=== PATIENT | male | born 1980 | race Caucasian/White ===

== ENCOUNTER 2022-05-13 15:35 | Emergency (ER) | payer OTHER, SELFPAY ==
[2022-05-13 15:45] VITALS: BP 145/79; PULSE 70; RESP 18; TEMP 37.2; O2SAT 97
--- NOTE | 2022-05-13 16:30 | DI.RAD_ITS ---
Exam(s) XR CHEST 2V PA LATERAL EXAM: XR CHEST 2V PA LATERAL CLINICAL HISTORY: Cough TECHNIQUE: 2D digital imaging was performed of the chest. Two images were obtained. PA and lateral views were obtained. COMPARISON: No exams were available for comparison FINDINGS: MEDIASTINUM: Normal. HEART: Normal. PULMONARY VASCULATURE: Normal. LUNGS: Clear. PLEURAL SPACE: No pleural effusion or pneumothorax. BONE:Within normal limits for the patient's age. OTHER FINDINGS:Normal. IMPRESSION: No acute pulmonary findings. DATA REPOSITORY: RADIATION DOSE DELIVERED:
--- NOTE | 2022-05-13 16:30 | ED.GENADUL_ITS ---
Discharge Plan Disposition Patient Disposition: Home Discharge Details Clinical Impression: Pneumonia Primary Care Provider: Unknown,Unknown ED Provider: Irena Lauren Home Meds and New Rx's Prescriptions: New azithromycin [Zithromax Z-Gregory] 250 mg tablet See Rx Instructions PO .COMPLEX Qty: 6 0RF Rx Instructions: For 250 mg dose pack: take 500 mg today (day 1), then 250 mg for 4 days (days 2-5) benzonatate 100 mg capsule 100 mg PO TID PRN (Reason: cough) Qty: 14 0RF Rx Instructions: Take 1 capsule by mouth no more than 3 times daily as needed for cough No Action cyclobenzaprine 10 mg Tablet 10 mg PO DAILY prazosin 5 mg Capsule 5 mg PO DAILY omeprazole 20 mg Capsule,Delayed Release(Dr/Ec) 20 mg PO TID fluoxetine 20 mg Capsule 40 mg PO DAILY Discharge Instructions Instructions: Pneumonia (ED) Additional Instructions: The x-ray shows possible pneumonia in your right lower lung. Please take the antibiotic as directed. Take 2 on the first day and 1 a day for the next 4 days. Use the albuterol inhaler 1 or 2 puffs every 4-6 hours as needed for shortness of breath or wheezing. Take the Tessalon Perles for cough as directed. Follow up with primary care provider in 3-5 days. Return to ED sooner if any worsening or concerns. Increase oral non sugary fluids. You may also gargle with warm salt water up to 3 times daily as needed for throat irritation. Please take Tylenol or Ibuprofen with food every 4-6 hours as needed for pain and swelling. Discharge Data Discharge Date/Time-TO BE ENTERED AT DEPARTURE: 05/13/22 17:56 Medical Decision Making 41-year-old male presents to the ER with chief complaint of cough and scratchy throat for approximately a week. He denies any fever, chills body aches chest pain or any other associated symptoms. He denies any productive cough. He is a daily smoker. Does have a past medical history of a pancreatic tumor and diabetes, hypertension, PTSD. Reports he was recently taken off his insulin the end of February. He reports multiple negative home rapid COVID's prior to arrival. He has been taking [id number] DayQuil or similar and cough drops. Lungs are clear to auscultation upon arrival, posterior oropharynx slightly erythemic. He does have somewhat of a hoarse voice. Rapid COVID and flu swab ordered, chest x-ray Tessalon Perles p.o. Rapid COVID and flu are negative Questionable pneumonia noted in the right lower lobe of the x-ray. Will prescribe Tessalon Perles, azithromycin, and albuterol inhaler and discussed follow-up with PCP. This text was generated using [employer] dictation system, please disregard any oddities of phrase or misspellings. Imaging Data Radiologic Study: Imaging: X-Ray Radiologist's impression: Imaging protocol: Radiologic exam of the chest. Views: 2 views. COMPARISON: No relevant prior studies available. FINDINGS: Lungs: There is a region of mildly increased density at the right lung base at the level of the right posterior 8th rib which could represent confluence of shadows but cannot exclude mild airspace opacity in this region. Pleural spaces: There is no evidence of pneumothorax. There are no pleural effusions present. Heart/Mediastinum: The cardiomediastinal silhouette is within normal limits. Bones/joints: Unremarkable. IMPRESSION: Possible mild right basilar airspace opacity, as described above, could represent atelectasis versus mild pneumonia. Recommend clinical correlation. Thank you for allowing us to participate in the care of your patient. Dictated and Authenticated by: Richard Cole MD [facility] General Mode of arrival: ambulatory . Date/Time Provider Initiated Documentation: 05/13/22 16:00 . Limitations to Documentation: no limitations . Information obtained by: patient, RN notes reviewed and old records reviewed . HPI Narrative: 41-year-old male presents to the ER with chief complaint of cough and scratchy throat for approximately a week. He denies any fever, chills body aches chest pain or any other associated symptoms. He denies any productive cough. He is a daily smoker. Does have a past medical history of a pancreatic tumor and diabetes, hypertension, PTSD. Reports he was recently taken off his insulin the end of February. He reports multiple negative home rapid COVID's prior to arrival. He has been taking [id number] DayQuil or similar and cough drops. Lungs are clear to auscultation upon arrival, posterior oropharynx slightly erythemic. He does have somewhat of a hoarse voice. Related Data Home Medications Medication Instructions Recorded Confirmed azithromycin 250 mg tablet See Rx Instructions PO .COMPLEX #6 05/13/22 (Zithromax Z-Gregory) tabs benzonatate 100 mg capsule 100 mg PO TID PRN cough #14 caps 05/13/22 cyclobenzaprine 10 mg tablet 10 mg PO DAILY 05/13/22 05/13/22 fluoxetine 20 mg capsule 40 mg PO DAILY 05/13/22 05/13/22 omeprazole 20 mg capsule,delayed 20 mg PO TID 05/13/22 05/13/22 release prazosin 5 mg capsule 5 mg PO DAILY 05/13/22 05/13/22 Previous Rx's Medication Instructions Recorded azithromycin 250 mg tablet See Rx Instructions PO .COMPLEX #6 05/13/22 (Zithromax Z-Gregory) tabs benzonatate 100 mg capsule 100 mg PO TID PRN cough #14 caps 05/13/22 Allergies Allergy/AdvReac Type Severity Reaction Status Date / Time Penicillins Allergy Severe Anaphylaxis Unverified 05/13/22 15:49 General Stated Complaint: RespSymp RAUL: 4 Review of Systems All systems reviewed & are unremarkable except as noted in HPI and below Cardiovascular Cardiovascular: Denies dyspnea and Denies dyspnea on exertion Respiratory Respiratory: Denies change in phlegm color, Reports chest congestion, Reports cough, Denies hemoptysis, Denies excessive phlegm production, Denies dyspnea, Denies dyspnea on exertion and Denies wheezing Gastrointestinal Gastrointestinal: Denies diarrhea, Denies nausea and Denies vomiting Allergic/Immunologic Allergic/Immunologic: Denies wheezing PFSH All Active Problems (Updated 05/13/22 @ 17:41 by Irena Lauren NP) Pneumonia (Acute) Social History Smoking risk assessment performed?: No Exam Narrative Exam Narrative: Constitutional: Alert and oriented x3. Appears stated age. Normal body habitus. Head: Normocephalic, no trauma. Eyes: Pupils PERRL, Red reflex noted, EOM's intact. Eyelids symmetrical without lesions, discharge, or swelling. ENT: Bilateral TM's WNL, External ear normal to inspection, no mastoid TTP, swelling, or erythema, Nasal turbinates WNL, no nasal discharge. Normal dentition, Posterior pharynx slightly erythemic, no exudate, tonsils 2+ bilaterally uvula midline. Chest: RRR, Normal S1, S2, distal pulses intact. Resp: Lungs clear to auscultation bilaterally, no wheezes, rales, or rhonchi. Abdomen: Soft, non-distended, Normoactive bowel sounds all 4 quads. Musculoskeletal: Normal gait, 5/5 strength to all four extremities. Skin: No suspicious rashes or lesions. Capillary refill less than 2 sec. Neurologic: Cranial nerves II-XII intact. Alert and oriented x 3. Motor: No deficits noted. Sensory: Intact bilaterally all 4 extremities. Reflexes: DTR's intact bilaterally.. Hematologic/Lymphatic: No ecchymosis, no lymphadenopathy. Course Vital Signs Vital signs: Vital Signs Temperature 37.2 C 05/13/22 15:45 Pulse 70 05/13/22 15:45 Respiratory Rate 18 05/13/22 15:45 Blood Pressure 145/79 H 05/13/22 15:45 Pulse Oximetry 97 05/13/22 15:45 Temperature 37.2 C 05/13/22 15:45 Temperature Source Oral 05/13/22 15:45 Pulse 70 05/13/22 15:45 Respiratory Rate 18 05/13/22 15:45 Respiratory Effort Normal 05/13/22 16:08 Blood Pressure 145/79 H 05/13/22 15:45 Blood Pressure Position Sitting 05/13/22 15:45 Pulse Oximetry 97 05/13/22 15:45 Oxygen Delivery Method Room Air 05/13/22 15:45 Oxygen Flow Rate 0 05/13/22 15:45 Pain Level 0 05/13/22 15:45
[2022-05-13] MEDS: Benzonatate 100 MG CAP PO (17:11)
--- NOTE | 2022-05-13 17:22 | DI.VRAD_ITS ---
PROCEDURE INFORMATION: Exam: XR Chest Exam date and time: 05/13/2022 5:07 PM Age: 41 years old Clinical indication: Cough TECHNIQUE: Imaging protocol: Radiologic exam of the chest. Views: 2 views. COMPARISON: No relevant prior studies available. FINDINGS: Lungs: There is a region of mildly increased density at the right lung base at the level of the right posterior 8th rib which could represent confluence of shadows but cannot exclude mild airspace opacity in this region. Pleural spaces: There is no evidence of pneumothorax. There are no pleural effusions present. Heart/Mediastinum: The cardiomediastinal silhouette is within normal limits. Bones/joints: Unremarkable. IMPRESSION: Possible mild right basilar airspace opacity, as described above, could represent atelectasis versus mild pneumonia. Recommend clinical correlation. Dictated and Authenticated by: Richard Cole MD. Ordering:RAMÓN Osborn MD
[2022-05-13] MEDS: Albuterol HFA 8 GM 60 PUFF INH IH (17:47)
[2022-05-13] MEDS: Azithromycin 250 MG TAB 500 MG PO (17:48)
== END 2022-05-13 17:56 | disposition home or self-care (01) ==
PROVIDERS: Emergency Provider Registered Nurse Emergency
DX: J18.9 Pneumonia, unspecified organism (principal); I10 Essential (primary) hypertension; E11.9 Type 2 diabetes mellitus without complications
CPT/HCPCS: 94640; 99283; 71046; 99284

== ENCOUNTER 2022-09-13 14:12 | Emergency (ER) | payer OTHER, SELFPAY ==
--- NOTE | 2022-09-13 14:33 | ED.GENADUL_ITS ---
Discharge Plan Disposition Patient Disposition: Home Condition: Stable Discharge Details Clinical Impression: Puncture wound of foot, right Primary Care Provider: [facility],[place] ED Provider: Irena Lauren Home Meds and New Rx's Prescriptions: No Action cyclobenzaprine 10 mg Tablet 10 mg PO DAILY prazosin 5 mg Capsule 5 mg PO DAILY omeprazole 20 mg Capsule,Delayed Release(Dr/Ec) 20 mg PO TID fluoxetine 20 mg Capsule 40 mg PO DAILY azithromycin [Zithromax Z-Gregory] 250 mg tablet See Rx Instructions PO .COMPLEX Qty: 6 0RF Rx Instructions: For 250 mg dose pack: take 500 mg today (day 1), then 250 mg for 4 days (days 2-5) benzonatate 100 mg capsule 100 mg PO TID PRN (Reason: cough) Qty: 14 0RF Rx Instructions: Take 1 capsule by mouth no more than 3 times daily as needed for cough gabapentin 300 mg capsule 300 mg Patient Comments: take 1 capsule by mouth AT NIGHT Discharge Instructions Instructions: Puncture Wound (ED) Additional Instructions: Keep clean and dry, keep covered when at work. Allow to air dry at least 2 hours a day. Return for any signs of infection including increased redness, swelling drainage or red streaks. You were given a tetanus booster here today. Please take Tylenol or Ibuprofen with food every 4-6 hours as needed for pain and swelling. Follow up with primary care provider in 3-5 days if needed. Return to ED sooner if any worsening or concerns. Increase oral fluids. Referrals: [facility],[place] [Primary Care Provider] - Return if symptoms worsen Medical Decision Making 42 year old male presents with a puncture wound to his right foot. Patient was at work at 0800 am and stepped on a nail. he then continued to work. He is requesting tetanus vaccination. I did discuss home care with him and strict return instructions to return if any signs of infection he verbalized understanding. Tdap ordered and wound care. This text was generated using [employer] system, please disregard any oddities of phrase or misspellings. HPI General Mode of arrival: ambulatory . Date/Time Provider Initiated Documentation: 09/13/22 14:18 . Limitations to Documentation: no limitations . Information obtained by: patient, RN notes reviewed and old records reviewed . HPI Narrative: 42 year old male presents with a puncture wound to his right foot. Patient was at work at 0800 am and stepped on a nail. he then continued to work. He is requesting tetanus vaccination. I did discuss home care with him and strict return instructions to return if any signs of infection he verbalized understanding. Related Data Home Medications Medication Instructions Recorded Confirmed azithromycin 250 mg tablet See Rx Instructions PO .COMPLEX #6 05/13/22 (Zithromax Z-Gregory) tabs benzonatate 100 mg capsule 100 mg PO TID PRN cough #14 caps 05/13/22 cyclobenzaprine 10 mg tablet 10 mg PO DAILY 05/13/22 05/13/22 fluoxetine 20 mg capsule 40 mg PO DAILY 05/13/22 05/13/22 omeprazole 20 mg capsule,delayed 20 mg PO TID 05/13/22 05/13/22 release prazosin 5 mg capsule 5 mg PO DAILY 05/13/22 05/13/22 gabapentin 300 mg capsule 300 mg 09/13/22 Previous Rx's Medication Instructions Recorded azithromycin 250 mg tablet See Rx Instructions PO .COMPLEX #6 05/13/22 (Zithromax Z-Gregory) tabs benzonatate 100 mg capsule 100 mg PO TID PRN cough #14 caps 05/13/22 Allergies Allergy/AdvReac Type Severity Reaction Status Date / Time Penicillins Allergy Severe Anaphylaxis Unverified 05/13/22 15:49 General Stated Complaint: Laceration RAUL: 4 Review of Systems Integumentary/Breasts Skin/Breast: Reports wounds (Puncture wound right foot) [facility] All Active Problems (Updated 09/13/22 @ 14:38 by Irena Lauren NP) Puncture wound of foot, right (Acute) Social History Smoking/Tobacco Use Status: Never Smoking risk assessment performed?: Yes Alcohol Intake: former Drug use: Socially Substance use type: marijuana Do you feel safe at home: Yes Do you feel safe in your relationship?: Yes Exam Extrem Right lower extremity: foot Details: normal capillary refill, normal to inspection and puncture wound plantar medial mid Details: single Ankle/foot/toe images: 1. Puncture wound noted, no bleeding at this time. Course Vital Signs Vital signs: Respiratory Effort Normal, Non-Labored 09/13/22 14:19 Pain Level 0 09/13/22 14:27
== END 2022-09-13 15:05 | disposition home or self-care (01) ==
PROVIDERS: Emergency Provider Registered Nurse Emergency
DX: S91.331A Puncture wound without foreign body, right foot, initial encounter (principal); W45.0XXA Nail entering through skin, initial encounter
CPT/HCPCS: 90471; 99284; 99283

== ENCOUNTER 2023-04-25 17:24 | Emergency (ER) | payer OTHER, SELFPAY ==
[2023-04-25 17:29] VITALS: BP 164/116; PULSE 79; RESP 22; TEMP 37.5; O2SAT 97
--- NOTE | 2023-04-25 17:36 | ED.GENADUL_ITS ---
HPI General Date/Time Provider Initiated Documentation: 04/25/23 17:35 . HPI Narrative: 42 year-old male presents to ED today by POV/ambulating with a chief complaint of cough, lung irritation with onset one week ago. Quality described as burning cough- feels he may have aspiration pneumonia which he has had before due to significant reflux disease, no radiation to fever, shortness of breath, body aches, profound lethargy, endorses mild sore throat. Severity is described as moderate. Palliating factors include nothing specific. Provoking factors include nothing specific. Patient not anticoagulated. Related Data Home Medications Medication Instructions Recorded Confirmed cyclobenzaprine 10 mg tablet 20 mg PO BID 05/13/22 04/25/23 fluoxetine 20 mg capsule 40 mg PO DAILY 05/13/22 04/25/23 omeprazole 20 mg capsule,delayed 20 mg PO TID 05/13/22 04/25/23 release gabapentin 300 mg capsule 300 mg PO BID 09/13/22 04/25/23 pantoprazole 40 mg tablet,delayed 40 mg PO DAILY 04/25/23 04/25/23 release (Protonix) Allergies Allergy/AdvReac Type Severity Reaction Status Date / Time Penicillins Allergy Severe Anaphylaxis Unverified 04/25/23 17:35 General Stated Complaint: RespSymp RAUL: 3 Review of Systems All systems reviewed & are unremarkable except as noted in HPI and below Exam Narrative Exam Narrative: GENERAL APPEARANCE: Well-nourished, non-toxic, awake and alert, atraumatic, no acute distress. SKIN: Warm, pink, dry, intact, without rashes/lesions/ulcerations. HEAD: Normocephalic, atraumatic, normal hair distribution for gender/age. EYES: Pupils PERRLA, EOMs intact without nystagmus, normal conjunctiva, no exudates on lids/lashes. ENT: Nares patent, no circumoral cyanosis, no facial swelling NECK: Supple, trachea midline, painless cervical ROM. LUNGS/CHEST: Lungs CTA bilaterally - no rhonchi/rales/wheezes diffusely, non- labored respirations, normal A/P diameter, symmetrical expansion, no chest wall deformity HEART (CV/PV): Regular rate and rhythm without murmur, no peripheral edema, no JVD. ABDOMEN: Soft, non-distended, no guarding, no tenderness. MSK: Normal ROM, no swelling/deformity to bilateral UEs or LEs, moving all extremities without weakness, no cyanosis, spine midline without tenderness, normal curvature. NEURO: Mental Status AAOx4 - alert to person, place, time, events No facial droop, no forehead involvement. Motor: No focal weakness - strength 5/5 in bilateral UEs and LEs, proximal and distal, symmetric. Sensory: sensation intact to light touch globally. Gait normal: patient ambulated without ataxia into ED room. PSYCH: euthymic, cooperative, pleasant, appropriate speech Course Vital Signs Vital signs: Vital Signs Temperature 37.5 C 04/25/23 17:29 Pulse 79 04/25/23 17:29 Respiratory Rate 22 04/25/23 17:29 Blood Pressure 164/116 H 04/25/23 17:29 Pulse Oximetry 97 04/25/23 17:29 Temperature 37.5 C 04/25/23 17:29 Temperature Source Temporal Artery Scan 04/25/23 17:29 Pulse 79 04/25/23 17:29 Respiratory Rate 22 04/25/23 17:29 Blood Pressure 164/116 H 04/25/23 17:29 Blood Pressure Position Sitting 04/25/23 17:29 Pulse Oximetry 97 04/25/23 17:29 Oxygen Delivery Method Room Air 04/25/23 17:29 Oxygen Flow Rate 0 04/25/23 17:29 Pain Level 6 04/25/23 17:29 Medical Decision Making This dictation utilizes [id number] dictation software and may contain unedited grammatical errors. 42 y/o M presents to ED today with a chief complaint of cough for one week, b urning in nature, feels he has aspiration pneumonia. Patient denies fever, shortness of breath, profound lethargy, body aches. Patients' medical history: GERD. Family and social history: noncontributory. Pertinent exam findings / vital signs include lungs CTA, no respiratory distress, nontoxic vitals. Differential / pathologies of concern include viral syndrome, aspiration pneumonia, URI. Diagnostic studies of: -Covid/Flu/RSV PCR, XR Chest. -CXR clear -Covid/Flu/RSV shows influenza positive Interventions of: -none- out of window for TamiFlu. ED Course/Assessment/Plan: 42-year-old male presents with cough for 1 week and denies significant shortness of breath, denies profound lethargy or bodyaches or intractable nausea vomiting, his chest x-ray is clear and his PCR swab shows positive for influenza, he is outside window for Tamiflu, I recommend he take therapeutic dosing Tylenol and ibuprofen and did provide an albuterol inhaler for subjective shortness of breath to go. Counseled on return criteria for worsening respiratory distress or inability to tolerate p.o. intake or profound lethargy. Findings not consistent with hypoxic respiratory failure, pneumonia. Disposition of influenza A. Patient verbalized understanding of the plan and return to ED criteria and engaged in shared decision making. Medical Records Medical records reviewed: Yes I reviewed the patient's medical records. Imaging Data Radiologic Study: Attestation: I personally reviewed and interpreted this imaging study as follows: Imaging: X-Ray Radiologist's impression: Exam(s) XR CHEST 2V PA LATERAL EXAM: XR CHEST 2V PA LATERAL CLINICAL HISTORY: cough 1 week. TECHNIQUE: 2D digital imaging was performed. COMPARISON: CR,XR XR CHEST 2V PA LATERAL from 05/13/2022 FINDINGS: 2 views: Heart size is normal. The mediastinum is not widened. Lungs are clear. No infiltrates nor pleural effusions. IMPRESSION: No acute pulmonary findings. Lab Data Lab results reviewed: Yes I reviewed the patient's lab results. 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 VIDYA,RN 04/25/23 Housing: house Do you feel safe at home: Yes Do you feel safe in your relationship?: Yes Discharge Plan Disposition Patient Disposition: Home Condition: Stable Discharge Details Clinical Impression: Influenza A Primary Care Provider: Unknown,Unknown ED Provider: Erasto Camacho Home Meds and New Rx's Prescriptions: Continued cyclobenzaprine 10 mg Tablet 20 mg PO BID omeprazole 20 mg Capsule,Delayed Release(Dr/Ec) 20 mg PO TID fluoxetine 20 mg Capsule 40 mg PO DAILY gabapentin 300 mg capsule 300 mg PO BID Patient Comments: take 1 capsule by mouth AT NIGHT pantoprazole [Protonix] 40 mg tablet,delayed release (DR/EC) 40 mg PO DAILY Discharge Instructions Instructions: Influenza (ED) Additional Instructions: You were seen in the emergency department for your cough with irritation in your lungs, you deny profound shortness of breath or profound lethargy, you are tolerating p.o. intake well. Your PCR swab is positive for influenza, your chest x-ray shows no pneumonia. You are outside window for the antiviral medicine Tamiflu which shortens duration of the flu. I am providing you with an albuterol inhaler for any developing subjective shortness of breath. Please use therapeutic dosing of Tylenol (acetamenophen) & Advil (ibuprofen) in an alternating fashion as follows: Take 1000mg of Tylenol every 6 hours without missing doses- that is 4 times per day. [place] in between the Tylenol dosings, take 400-600mg of Advil also on a 6 hour schedule, that is also 4 times per day. The daily maximum dosing of Tylenol is 4000mg, and the daily maximum dosing of Advil is 2400mg. This is safe to do for weeks. Please note that some common cold medications & prescription pain medications may contain acetamenophen and you need to read OTC drug labels and factor that in to maximum daily dosings. Get plenty of rest and stay well-hydrated, return to the ED for any profound lethargy, intractable nausea or vomiting or profound shortness of breath.
--- NOTE | 2023-04-25 17:45 | DI.RAD_ITS ---
Exam(s) XR CHEST 2V PA LATERAL EXAM: XR CHEST 2V PA LATERAL CLINICAL HISTORY: cough 1 week. TECHNIQUE: 2D digital imaging was performed. COMPARISON: CR,XR XR CHEST 2V PA LATERAL from 05/13/2022 FINDINGS: 2 views: Heart size is normal. The mediastinum is not widened. Lungs are clear. No infiltrates nor pleural effusions. IMPRESSION: No acute pulmonary findings. DATA REPOSITORY: RADIATION DOSE DELIVERED:
[2023-04-25 17:50] VITALS: BP 164/116; PULSE 79; RESP 22; TEMP 37.5; O2SAT 97
[2023-04-25 19:02] LABS: COVID-19 PCR Negative (Negative); Influenza A PCR Positive (Negative); Influenza B PCR Negative (Negative); RSV PCR Negative (Negative)
[2023-04-25 19:03] LABS: Source NASOPHARYNX
[2023-04-25] MEDS: Albuterol HFA 8 GM 60 PUFF INH IH (19:15)
[2023-04-25 19:17] VITALS: BP 132/62; PULSE 84; RESP 16; TEMP 36.6; O2SAT 99
== END 2023-04-25 19:19 | disposition home or self-care (01) ==
PROVIDERS: Emergency Provider Physician Assistant
DX: J10.1 Influenza due to other identified influenza virus with other respiratory manifestations (principal); Z11.52 Encounter for screening for COVID-19
CPT/HCPCS: 87637; 99283; 71046

== ENCOUNTER 2023-06-13 14:24 | Outpatient (CLI) | payer OTHER, SELFPAY ==
[2023-06-12 17:08] LABS: Abs Immature Grans 0.02 10^3/uL (0.0-0.06); Absolute Basophil Count 0.04 10^3/uL (0.0-0.2); Absolute Eosinophil Count 0.48 10^3/uL (0.0-0.7); Absolute Monocyte Count 0.51 10^3/uL (0.1-0.8); Absolute Neutrophil Count 6.35 10^3/uL (1.2-6.7); Basophils % 0.4; Eosinophils % 4.7; HGB 15.1 g/dL (13.5-17.5); Immature Grans % 0.2; Lymphocytes % 28.2; MCH 28.4 pg (27.0-33.0); MCHC 33.6 % (32.0-36.0); MCV 85 fL (80-95); MPV 10.8 fL (8.0-11.0); Neutrophils % 61.5; Platelet Count 212 10^3/uL (130-400); RBC 5.32 10^6/uL (4.36-5.78); RDW 12.7 % (11.8-14.1); RDW-SD 39.3 fL
[2023-06-12 17:25] LABS: PTT Activated 26.7 sec (23.6-32.8); Prothrombin Time 10.5 sec (9.1-11.1)
[2023-06-12 18:19] LABS: ALT 40 U/L (16-63); AST 31 U/L (15-37); Alkaline Phosphatase 103 U/L (46-116); Anion Gap 10.5 mmol/L (3-11); BUN 15 mg/dL (7-18); Bilirubin, Total 0.4 mg/dL (0.2-1.0); CO2 29.5 mmol/L (21.0-32.0); CREATININE 0.9 mg/dL (0.70-1.30); Calcium 9.3 mg/dL (8.5-10.1); Chloride 102 mmol/L (98-107); Estimated GFR 108.68 (mL/min/1.73m2); Glucose 94 mg/dL (74-106); Potassium 3.5 mmol/L (3.5-5.1); Sodium 142 mmol/L (136-145); Total Protein 7.8 g/dL (6.4-8.2)
[2023-06-13 19:29] LABS: Hepatitis C Ab w Rflx HCV PCR Reactive (Negative)
[2023-06-14 12:31] LABS: HCV RNA Qualitative Undetected (Undetected)
== END 2023-06-13 14:25 | disposition home or self-care (01) ==
PROVIDERS: Visit Provider Neurological Surgery
DX: M47.12 Other spondylosis with myelopathy, cervical region (principal); Z01.818 Encounter for other preprocedural examination; Z86.19 Personal history of other infectious and parasitic diseases
CPT/HCPCS: 36415; 80053; 86803; 87522; 85025; 85610; 85730

== ENCOUNTER 2024-02-07 14:27 | Emergency (ER) | payer OTHER, SELFPAY ==
[2024-02-07 14:29] VITALS: BP 128/90; PULSE 90; RESP 20; TEMP 36.7; O2SAT 96
[2024-02-07 14:32] VITALS: BP 128/90; PULSE 90; RESP 20; TEMP 36.7; O2SAT 96
--- NOTE | 2024-02-07 14:46 | ED.GENADUL_ITS ---
Discharge Plan Disposition Patient Disposition: Home Condition: Stable Discharge Details Clinical Impression: Acute respiratory infection Primary Care Provider: Unknown,Unknown ED Provider: Eddie Cota Home Meds and New Rx's Prescriptions: New prednisone 20 mg tablet 60 mg PO DAILY 4 Days Qty: 12 0RF doxycycline hyclate 100 mg tablet 100 mg PO BID Qty: 14 0RF Continued fluoxetine 20 mg Capsule 40 mg PO DAILY baclofen 5 mg tablet 5 mg PO TID Patient Comments: TAKE 2 TABLETS BY MOUTH THREE TIMES DAILY NEEDED FOR MUSCLE SPASM pantoprazole [Protonix] 40 mg tablet,delayed release (DR/EC) 40 mg PO DAILY Discontinued cyclobenzaprine 10 mg Tablet 20 mg PO BID omeprazole 20 mg Capsule,Delayed Release(Dr/Ec) 20 mg PO TID gabapentin 300 mg capsule 300 mg PO BID Patient Comments: take 1 capsule by mouth AT NIGHT Discharge Instructions Additional Instructions: Your viral swab and chest x-ray did not show any concerning findings. Given you have had a week of symptoms we are initiating oral antibiotics with doxycycline for potential early pneumonia If you are not better within a week follow-up with either express care or your primary care provider If you feel more ill or have severe worsening shortness of breath return to the emergency department for reevaluation HPI General Mode of arrival: ambulatory . Date/Time Provider Initiated Documentation: 02/07/24 14:28 . Limitations to Documentation: no limitations . Information obtained by: patient . History of Present Illness 43 year old M presents to the emergency department with the chief complaint of cough and w heezing, described as moderate, Patient started experiencing this week(s) (1) and it has been constant. No relieving factors improve symptom(s), No exacerbating factors reported . Patient notes denies chest pain and fever/chills. Patient did receive the following treatments prior to arrival, none Related Data Home Medications ?Medication ?Instructions ?Recorded ?Confirmed fluoxetine 20 mg capsule 40 mg PO DAILY 05/13/22 02/07/24 pantoprazole 40 mg tablet,delayed 40 mg PO DAILY 04/25/23 02/07/24 release (Protonix) baclofen 5 mg tablet 5 mg PO TID 02/07/24 02/07/24 doxycycline hyclate 100 mg tablet 100 mg PO BID #14 tabs 02/07/24 prednisone 20 mg tablet 60 mg (3 x 20 mg) PO DAILY 4 days 02/07/24 #12 tabs Previous Rx's ?Medication ?Instructions ?Recorded doxycycline hyclate 100 mg tablet 100 mg PO BID #14 tabs 02/07/24 prednisone 20 mg tablet 60 mg (3 x 20 mg) PO DAILY 4 days 02/07/24 #12 tabs Allergies Allergy/AdvReac Type Severity Reaction Status Date / Time Penicillins Allergy Severe Anaphylaxis Unverified 02/07/24 14:33 General Stated Complaint: RespSymp RAUL: 4 Review of Systems All systems reviewed & are unremarkable except as noted in HPI and below Constitutional Constitutional: Denies chills, Denies fever(s) and Denies weakness ENT Ears, Nose, Mouth, and Throat: Denies change in voice Cardiovascular Cardiovascular: Denies chest pain and Denies dyspnea Respiratory Respiratory: Denies dyspnea and Reports wheezing Gastrointestinal Gastrointestinal: Denies abdominal pain, Denies nausea and Denies vomiting Musculoskeletal Musculoskeletal: Denies joint swelling Neurologic Neurologic: Denies weakness Allergic/Immunologic Allergic/Immunologic: Reports wheezing Exam Const General: no acute distress Orientation: alert HENTN Head: normal to inspection Ears: external ears normal General nose exam: external nose normal Mouth: moist mucous membranes Eyes General: appearance normal, both eyes and all related structures Neck Neck: normal visual inspection Resp Effort & Inspection: normal respiratory effort and able to speak in complete sentences Auscultation: wheezes Cardio Rate: regular rate Skin General skin exam: no rashes or lesions noted Neuro General: patient alert and patient oriented x3 Extrem General: normal to inspection Psych Mental Status: mental status grossly normal Course Vital Signs Vital signs: Vital Signs Temperature 36.7 C 02/07/24 14:29 Pulse 90 02/07/24 14:29 Respiratory Rate 20 02/07/24 14:29 Blood Pressure 128/90 02/07/24 14:29 Pulse Oximetry 96 02/07/24 14:29 Temperature 36.7 C 02/07/24 14:32 Pulse 90 02/07/24 14:32 Respiratory Rate 20 02/07/24 14:32 Respiratory Effort Normal 02/07/24 14:32 Blood Pressure 128/90 02/07/24 14:32 Blood Pressure Position Sitting 02/07/24 14:32 Pulse Oximetry 96 02/07/24 14:32 Oxygen Delivery Method Room Air 02/07/24 14:32 Oxygen Flow Rate 0 02/07/24 14:29 Medical Decision Making 43-year-old male with a history of chronic smoking comes in with 1 week of intermittently productive cough. He also states that he feels wheezy in his chest. He denies any high fevers or known sick contacts. Denies any chest pain or pressure. Denies any IV drug use. He is speaking full sentences on exam with intermittent harsh sounding cough. He has diffuse wheezing in both lungs on auscultation, no murmurs, no JVD, no leg swelling or calf tenderness. His symptoms seem consistent with a respiratory infection likely has a component of reactive airway disease or COPD. Will treat with a DuoNeb and prednisone and also obtain a chest x-ray and Fluvid. He has no fevers and is otherwise well- appearing so doubt sepsis and do not feel any blood work is indicated at this time. Patient's lung exam now only has mild apical wheezing. He remained stable, x- ray and Fluvid negative. Given he had a week of symptoms I feel it is reasonable to treat with antibiotics, will initiate treatment with doxycycline. 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
[2024-02-07] MEDS: predniSONE 20 MG TAB 60 MG PO (15:12)
[2024-02-07] MEDS: Albuterol/Ipratropium 3 ML UPD VIAL UPD (15:12)
[2024-02-07 15:22] LABS: COVID-19 PCR Negative (Negative); Influenza A PCR Negative (Negative); Influenza B PCR Negative (Negative); RSV PCR Negative (Negative)
[2024-02-07 15:23] LABS: Source Nasopharynx
--- NOTE | 2024-02-07 15:41 | DI.RAD_ITS ---
Exam(s) XR CHEST 2V PA LATERAL EXAM: XR CHEST 2V PA LATERAL CLINICAL HISTORY: cough TECHNIQUE: 2D digital imaging was performed. Two views. COMPARISON: CR XR CHEST 2V PA LATERAL from 04/25/2023 FINDINGS: HEART: Normal size. Aorta: Not dilated. PULMONARY VASCULATURE: Normal. MEDIASTINUM: Unremarkable. LUNGS: Clear. PLEURAL SPACE: No pleural effusion or pneumothorax. BONE:Unremarkable for age. SOFT TISSUES: Unremarkable. IMPRESSION: No acute abnormality. DATA REPOSITORY: RADIATION DOSE DELIVERED:
[2024-02-07 16:01] VITALS: BP 155/90; PULSE 72; RESP 14; O2SAT 97
== END 2024-02-07 16:06 | disposition home or self-care (01) ==
LOC: ER 16:02
PROVIDERS: Emergency Provider Emergency Medicine
DX: J06.9 Acute upper respiratory infection, unspecified (principal)
CPT/HCPCS: 87637; 94640; 99284; 71046; J7512; J7620

== ENCOUNTER 2024-06-01 18:42 | Emergency (ER) | payer OTHER, SELFPAY ==
[2024-06-01 18:45] VITALS: BP 164/89; PULSE 59; RESP 18; TEMP 36.6; O2SAT 98
--- NOTE | 2024-06-01 19:19 | ED.GENADUL_ITS ---
Discharge Plan Disposition Patient Disposition: Home Condition: Good Discharge Details Clinical Impression: Cough Primary Care Provider: Unknown,Unknown ED Provider: Sarah Leal Home Meds and New Rx's Prescriptions: New benzonatate 100 mg capsule 100 mg PO BID PRNQty: 6 0RF Continued fluoxetine 20 mg Capsule 40 mg PO DAILY baclofen 5 mg tablet 5 mg PO TID Patient Comments: TAKE 2 TABLETS BY MOUTH THREE TIMES DAILY NEEDED FOR MUSCLE SPASM pantoprazole [Protonix] 40 mg tablet,delayed release (DR/EC) 40 mg PO DAILY Discharge Instructions Instructions: Benzonatate, Cough, Adult ED Additional Instructions: Use your albuterol inhaler at home as prescribed. You can take benzonatate for cough. BE VERY CAREFUL WITH THIS MEDICATION IT IS VERY DANGEROUS FOR CHILDREN AND EVEN ONE PILL CAN LEAD TO . Store it safely where your 6 month old cannot reach it and throw away any that is left over (in a location that your child cannot access) after your cough improves. Call your primary care doctor to schedule an appointment to be seen within the next 72 hours to followup on your visit here. At that visit mention your blood pressure which is high here today. Return to the emergency department for new or worsening symptoms including fever, difficulty breathing, or if you have any other concerns. Discharge Data Discharge Date/Time-TO BE ENTERED AT DEPARTURE: 06/01/24 19:31 HPI General Mode of arrival: ambulatory . Date/Time Provider Initiated Documentation: 06/01/24 18:44 . Limitations to Documentation: no limitations . Information obtained by: patient . HPI Narrative: 43yo M with hx asthma, smoker, presenting for cough. Symptoms started 2 days ago, frequent harsh cough occasionally productive of clear or yellowish sputum. Keeping him up at night. No fevers, shortness of breath, chest pain, dyspnea on exertion, LE edema, or other concerns. Otherwise in his usual state of health. Related Data Home Medications ?Medication ?Instructions ?Recorded ?Confirmed fluoxetine 20 mg capsule 40 mg PO DAILY 05/13/22 06/01/24 pantoprazole 40 mg tablet,delayed 40 mg PO DAILY 04/25/23 06/01/24 release (Protonix) baclofen 5 mg tablet 5 mg PO TID 02/07/24 06/01/24 benzonatate 100 mg capsule 100 mg PO BID PRN #6 caps 06/01/24 Previous Rx's ?Medication ?Instructions ?Recorded benzonatate 100 mg capsule 100 mg PO BID PRN #6 caps 06/01/24 Allergies Allergy/AdvReac Type Severity Reaction Status Date / Time Penicillins Allergy Severe Anaphylaxis Unverified 06/01/24 18:47 bee venom protein (honey bee) Allergy Anaphylaxis Verified 06/01/24 18:47 chocolate Allergy Anaphylaxis Verified 06/01/24 18:47 General Stated Complaint: RespSymp RAUL: 4 Review of Systems Narrative: see HPI Exam Narrative Exam Narrative: General: Alert, well appearing, well nourished, in no acute distress. Head: Normocephalic, atraumatic Neck: Trachea midline, ?Neck supple. ENT: ?MMM.? No oropharygeal lesions or exudate. Cardiac: ?RRR, no murmurs appreciated Resp: No respiratory distress. CTAB. Abd: ?Soft, non-distended, nontender : ?No suprapubic tenderness. No CVA tenderness. Extremities: ?No deformities.? No peripheral edema. Neurologic: GCS 15. ? Moves all extremities freely against gravity Course Vital Signs Vital signs: Vital Signs Temperature 36.6 C 06/01/24 18:45 Pulse 59 L 06/01/24 18:45 Respiratory Rate 18 06/01/24 18:45 Blood Pressure 164/89 H 06/01/24 18:45 Pulse Oximetry 98 06/01/24 18:45 Temperature 36.6 C 06/01/24 18:45 Temperature Source Oral 06/01/24 18:45 Pulse 59 L 06/01/24 18:45 Respiratory Rate 18 06/01/24 18:45 Respiratory Effort Normal, Non-Labored 06/01/24 18:56 Respiratory Depth Normal 06/01/24 18:56 Blood Pressure 164/89 H 06/01/24 18:45 Blood Pressure Position Sitting 06/01/24 18:45 Pulse Oximetry 98 06/01/24 18:45 Oxygen Delivery Method Room Air 06/01/24 18:45 Oxygen Flow Rate 0 06/01/24 18:45 Pain Level 0 06/01/24 18:45 Medical Decision Making 43yo M with hx asthma, smoker, presenting for cough x 2 days. No fever CP, or SOB. Hypertensive on arrival, vital signs otherwise reassuring. Well appearing on exam, no respiratory distress, lungs CTAB. Not concerned for pneumonia at this time; unlikely ACS, PE, CHF, pulmonary edema, sepsis, or other life- threatening pathology. Would not get labs or CT imaging. POC covid/flu negative. Given albuterol inhaler (pt out of his home inhaler). Discussed risks/benefits of tessalon pearls for cough (pt does have 6 month old at home) including one pill can kill status for pediatrics and the importance of storing safely. Short course prescribed. He was advised to followup with his PCP and to discuss his HTN at that visit. Discharged home; discharge instructions and return precautions were reviewed with patient and partner at bedside who verbalized understanding. All questions were answered and he is in full agreement with the plan. 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
[2024-06-01] MEDS: Albuterol HFA 8 GM 60 PUFF INH IH (19:24)
== END 2024-06-01 19:31 | disposition home or self-care (01) ==
PROVIDERS: Emergency Provider Student in an Organized Health Care Education/Training Program
DX: R05.9 Cough, unspecified (principal); J45.909 Unspecified asthma, uncomplicated; F17.200 Nicotine dependence, unspecified, uncomplicated
CPT/HCPCS: 87426; 99283

== ENCOUNTER 2024-06-04 10:39 | Emergency (ER) | payer OTHER, SELFPAY ==
[2024-06-04 11:02] VITALS: BP 127/86; PULSE 89; RESP 16; TEMP 36.7; O2SAT 97
--- NOTE | 2024-06-04 11:15 | DI.RAD_ITS ---
Exam(s) XR CHEST 2V PA LATERAL EXAM: XR CHEST 2V PA LATERAL CLINICAL HISTORY: Cough TECHNIQUE: 2D digital imaging was performed. Two views. COMPARISON: CR XR CHEST 2V PA LATERAL from 02/07/2024 FINDINGS: HEART: Normal size. Aorta: Not dilated. PULMONARY VASCULATURE: Normal. MEDIASTINUM: Unremarkable. LUNGS: Clear. PLEURAL SPACE: No pleural effusion or pneumothorax. BONE:Unremarkable for age. SOFT TISSUES: Unremarkable. IMPRESSION: No acute abnormality. DATA REPOSITORY: RADIATION DOSE DELIVERED:
[2024-06-04 11:18] VITALS: PULSE 65; RESP 16; TEMP 36.7; O2SAT 98
--- NOTE | 2024-06-04 11:23 | ED.GENADUL_ITS ---
Discharge Plan Disposition Patient Disposition: Home Condition: Stable Discharge Details Clinical Impression: Respiratory syncytial virus (RSV) Primary Care Provider: Unknown,Unknown ED Provider: Irena Lauren Home Meds and New Rx's Prescriptions: New benzonatate 100 mg capsule 100 mg PO TID PRN (Reason: cough) Qty: 14 0RF Rx Instructions: Take 1 capsule up to 3 times daily as needed for cough prednisone 50 mg tablet 50 mg PO DAILY 5 Days Qty: 5 0RF Rx Instructions: Take 1 tablet daily for the next 5 days No Action fluoxetine 20 mg Capsule 40 mg PO DAILY baclofen 5 mg tablet 5 mg PO TID Patient Comments: TAKE 2 TABLETS BY MOUTH THREE TIMES DAILY NEEDED FOR MUSCLE SPASM pantoprazole [Protonix] 40 mg tablet,delayed release (DR/EC) 40 mg PO DAILY Discharge Instructions Instructions: Respiratory Syncytial Virus, Adult (DC) Additional Instructions: At this time you have tested positive for RSV which is a respiratory virus. No evidence for pneumonia on the chest x-ray. Please use the Tessalon Perles as needed for cough or you can also use [id number] cough and cold medicine as directed. Use the prednisone once daily for the next 5 days this will decrease the inflammation in your airway. Continue to use the albuterol inhaler 1 to 2 puffs every 4-6 hours as needed. Consider quitting smoking. Follow up with primary care provider in 3-5 days. Return to ED sooner if any worsening or concerns. Please take Tylenol or Ibuprofen with food every 4-6 hours as needed for pain and swelling. Thank you for allowing us to care for you today. Referrals: Primary Care Provider [Outside] - 1 week HPI General Mode of arrival: ambulatory . Date/Time Provider Initiated Documentation: 06/04/24 11:18 . Limitations to Documentation: no limitations . Information obtained by: patient, RN notes reviewed and old records reviewed . HPI Narrative: Patient seen here 3 days ago 43-year-old male presents with continued cough. Received a prescription for Tessalon Perles. He does have some expiratory wheezes noted most worse at night. Left lower lobe sounds mild crackles and expiratory wheezes. He is a daily smoker. Reports that he was diagnosed with pneumonia in April. He has been using albuterol inhaler, last used 30 minutes ago. Related Data Home Medications ?Medication ?Instructions ?Recorded ?Confirmed fluoxetine 20 mg capsule 40 mg PO DAILY 05/13/22 06/04/24 pantoprazole 40 mg tablet,delayed 40 mg PO DAILY 04/25/23 06/04/24 release (Protonix) baclofen 5 mg tablet 5 mg PO TID 02/07/24 06/04/24 benzonatate 100 mg capsule 100 mg PO TID PRN cough #14 caps 06/04/24 prednisone 50 mg tablet 50 mg PO DAILY Inflammation 5 days 06/04/24 #5 tabs Previous Rx's ?Medication ?Instructions ?Recorded benzonatate 100 mg capsule 100 mg PO TID PRN cough #14 caps 06/04/24 prednisone 50 mg tablet 50 mg PO DAILY Inflammation 5 days 06/04/24 #5 tabs Allergies Allergy/AdvReac Type Severity Reaction Status Date / Time Penicillins Allergy Severe Anaphylaxis Unverified 06/04/24 11:11 bee venom protein (honey bee) Allergy Anaphylaxis Verified 06/04/24 11:11 chocolate Allergy Anaphylaxis Verified 06/04/24 11:11 General Stated Complaint: RespSymp RAUL: 4 Exam Narrative Exam Narrative: Constitutional: Alert and oriented x3. Appears stated age. Normal body habitus. Head: Normocephalic, no trauma. Eyes: Pupils PERRL, Red reflex noted, EOM's intact. Eyelids symmetrical without lesions, discharge, or swelling. ENT: Bilateral TM's WNL, External ear normal to inspection, no mastoid TTP, swelling, or erythema, Nasal turbinates WNL, no nasal discharge. Poor dentition, Posterior pharynx WNL, no exudate. Chest: RRR, Normal S1, S2, distal pulses intact. Resp: Mild right lower lobe wheezes noted. Abdomen: Soft, non-distended, Normoactive bowel sounds all 4 quads. Musculoskeletal: Normal gait, Moves all 4 extremities without difficulty. Skin: No suspicious rashes or lesions. Capillary refill less than 2 sec. Neurologic: Cranial nerves II-XII intact. Alert and oriented x 3. Motor: No deficits noted. Sensory: Intact bilaterally all 4 extremities. Hematologic/Lymphatic: No ecchymosis, no lymphadenopathy. Course Vital Signs Vital signs: Vital Signs Temperature 36.7 C 06/04/24 11:02 Pulse 89 06/04/24 11:02 Respiratory Rate 16 06/04/24 11:02 Blood Pressure 127/86 06/04/24 11:02 Pulse Oximetry 97 06/04/24 11:02 Temperature 36.7 C 06/04/24 11:18 Temperature Source Oral 06/04/24 11:18 Pulse 65 06/04/24 11:18 Respiratory Rate 16 06/04/24 11:18 Respiratory Effort Normal, Non-Labored 06/04/24 11:17 Respiratory Depth Normal 06/04/24 11:17 Blood Pressure 127/86 06/04/24 11:02 Blood Pressure Position Sitting 06/04/24 11:02 Pulse Oximetry 98 06/04/24 11:18 Oxygen Delivery Method Room Air 06/04/24 11:18 Oxygen Flow Rate 0 06/04/24 11:02 Pain Level 8 06/04/24 11:18 Comment pain with cough 06/04/24 11:18 Medical Decision Making 43-year-old male presents with continued cough after being seen here in the emergency department proximately 3 days ago.. Received a prescription for Tessalon Perles. He does have some expiratory wheezes noted most worse at night. Left lower lobe sounds mild crackles and expiratory wheezes. He is a daily smoker. Reports that he was diagnosed with pneumonia in April. He has been using albuterol inhaler, last used 30 minutes ago. Chest x-ray Fluvid swab ordered. Will consider prednisone, Tessalon Perles. Chest x-ray within normal limits no evidence for pneumonia or acute abnormality. Fluvid swab positive for RSV. Will give Tessalon Perles, prednisone stent and home care. All his questions were answered to the best my ability. I did discuss home care he is concerned for his infant son who is with him. He has no signs of increased work of breathing no retractions no drooling. He is pink warm dry age-appropriate. Patient was reassured and he verbalized understanding. Patient was given a prescription for prednisone and Tessalon Perles as noted above. He verbalized understanding. This text was generated using [employer] system, please disregard any oddities of phrase or misspellings. Medical Records Medical records reviewed: Yes I reviewed the patient's medical records. Lab Data Lab results reviewed: Yes I reviewed the patient's lab results. 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
[2024-06-04 13:19] LABS: COVID-19 PCR Negative (Negative); Influenza A PCR Negative (Negative); Influenza B PCR Negative (Negative)
[2024-06-04 13:21] LABS: RSV PCR Positive (Negative); Source Nasopharynx
[2024-06-04 13:39] VITALS: BP 138/78; PULSE 68; RESP 16; TEMP 36.6; O2SAT 98
== END 2024-06-04 13:43 | disposition home or self-care (01) ==
PROVIDERS: Emergency Provider Registered Nurse Emergency
DX: J20.5 Acute bronchitis due to respiratory syncytial virus (principal)
CPT/HCPCS: 87637; 99283; 71046

== ENCOUNTER 2024-07-26 09:36 | Outpatient (CLI) | payer OTHER, SELFPAY ==
--- NOTE | 2024-07-26 10:08 | DI.RAD_ITS ---
Exam(s) XR KNEE LT 4V AP,LAT,BENEDICTO,PAT EXAM: XR KNEE LT 4V AP,LAT,BENEDICTO,PAT CLINICAL HISTORY: left knee pain. TECHNIQUE: 2D digital imaging was performed. COMPARISON: No exams were available for comparison FINDINGS: Four views No evidence of fracture nor obvious joint effusion. Bone density normal. Benign bone island noted i n the medial femoral condyle. No significant osseous lesions nor osteochondral defects. There is no degenerative change evident in all 3 compartments. Patella as well situated. IMPRESSION: No significant radiographic findings in the left knee. DATA REPOSITORY: RADIATION DOSE DELIVERED:
== END 2024-07-26 09:37 | disposition home or self-care (01) ==
LOC: DIORS 09:37
PROVIDERS: Visit Provider Physician Assistant
DX: M25.562 Pain in left knee (principal); M23.92 Unspecified internal derangement of left knee; Z98.890 Other specified postprocedural states
CPT/HCPCS: 73564

== ENCOUNTER 2024-08-02 00:27 | Outpatient (CLI) | payer OTHER, SELFPAY ==
--- NOTE | 2024-08-02 07:52 | DI.MRI_ITS ---
Exam(s) MR LOWER JOINT LT WO EXAM: MR LOWER JOINT LT WO CLINICAL HISTORY: LT KNEE PAIN,[id number] TECHNIQUE: Multiplanar multisequence MRI of the knee was performed. COMPARISON: No exams were available for comparison FINDINGS: EFFUSION: There is a small amount of increased joint fluid. There is a Calles cyst in the medial popl iteal fossa which measures 5 cm craniocaudal by 1.5 cm AP by 1.2 cm wide. This non septated Calles cy st does not contain loose bodies. MARROW:There is no evidence of fracture, bone contusion, nor osteochondral defects.. There are no si gnificant osseous lesions. PATELLOFEMORAL COMPARTMENT: The quadriceps tendon is intact. The patellar ligament is intact. There is some surface irregularity of the retropatellar cartilage over both medial lateral facets con sistent with mild chondromalacia. There are no deep fissures. There is no abnormal subarticular sig nal in the posterior patella.There is no intraosseous signal to suggest recent patellar dislocation. There are no patellar retinacular tears. CRUCIATE LIGAMENTS: The anterior cruciate ligament is intact.The posterior cruciate ligament is intac t. MEDIAL COMPARTMENT/MEDIAL MENISCUS: There is a focal tear in the posterior horn of medial meniscus wh ich is located echo distant from the meniscal root attachment site and meniscocapsular junction. Thi s contacts both the superior and inferior articular surfaces as seen best on the coronal images. The re is no bucket-handle configuration. No flipped meniscal fragments. The anterior horn of the media l meniscus appears intact. There are no chondral defects, osteochondral defects, subarticular marrow edema, nor osteophytes evid ent. MEDIAL COLLATERAL LIGAMENT: Intact LATERAL COMPARTMENT/LATERAL MENISCUS: There is no evidence of lateral meniscal tear.There are no luly dral defects, osteochondral defects, subarticular marrow edema, nor osteophytes evident. ILIOTIBIAL BAND: Intact LATERAL COLLATERAL LIGAMENT COMPLEX: The fibular collateral ligament is intact. The biceps femoris t endon is intact.Popliteus muscle and tendon are intact. IMPRESSION: 1. There is a small focal tear in the posterior horn of the medial meniscus echo distance between the medial and lateral aspects of the posterior horn. No bucket-handle configuration or flipped menisca l fragments. The anterior horn of the medial meniscus is intact. There are no tears of the lateral meniscus. 2. There is minimal if any significant degenerative change in the medial and lateral compartments. 3. There is mild surface chondromalacia patella. No abnormal intraosseous signal in the patella. 4. No cruciate nor collateral ligament tears. 5. Small joint effusion. No loose bodies evident. Calles cysts noted which measures 5 cm length. DATA REPOSITORY:
== END 2024-08-02 00:47 ==
PROVIDERS: PCP Nurse Practitioner; Visit Provider Student in an Organized Health Care Education/Training Program
DX: M25.562 Pain in left knee (principal); M23.222 Derangement of posterior horn of medial meniscus due to old tear or injury, left knee
CPT/HCPCS: 73721

== ENCOUNTER 2024-09-26 12:45 | Day surgery (SDC) | payer OTHER, SELFPAY ==
--- NOTE | 2024-09-26 09:24 | W.PM.OP ---
Operative Note Operative Note Refer to Anesthesia Record Date of Procedure: 09/26/24
--- NOTE | 2024-09-26 10:22 | PDOC.DSDIS_ITS ---
Date of service: 09/26/24 Discharge Plan Disposition Patient Disposition: Home Condition: Stable Discharge Details Attending Provider: Vj Lenz Primary Care Provider: Josette Canseco Home Meds and New Rx's Prescriptions: No Action multivitamin Tablet 1 tab PO DAILY acetaminophen 325 mg tablet 325 mg PO ONCE PRN fluoxetine 20 mg capsule 40 mg PO DAILY nicotine (polacrilex) 2 mg mini lozenge 2 mg buccal Q4H PRN baclofen 5 mg tablet 5 mg PO TID Patient Comments: TAKE 2 TABLETS BY MOUTH THREE TIMES DAILY NEEDED FOR MUSCLE SPASM pantoprazole [Protonix] 40 mg tablet,delayed release (DR/EC) 40 mg PO DAILY Discharge Instructions Additional Instructions: Surgery: Left knee arthroscopy with [partial medial meniscectomy and synovectomy] 09/26/24 Activity: Weightbearing as tolerated. Advance range of motion as comfort allows. No knee brace or crutches needed as soon as comfortable. Recommend darrick iding sports, pivoting, and squatting for 6-8 weeks. A physical therapy prescription will be sent electronically to start in about 3 weeks. Prescriptions: Aspirin 81 mg take 1 daily to prevent a blood clot for 14 days, starting tomorrow Naproxen 250 mg take 1-2 every 12 hours with a meal as needed for moderate pain Oxycodone 5 mg take 1-2 every 4-6 hours as needed for severe pain You may use abhc-hnn-mxxzvbt Tylenol (acetaminophen) as needed for mild pain. These pain medications may be taken all at once or in different combinations as needed. Also, recommend Colace (docusate) as a stool softener as surgery and pain medicine cause constipation. You may try lsrj-igi-hnzytat diphenhydramine (Benadryl) 25-50 mg nightly as a sleep aid Dressings: Leave dressing in place for 3 days. May then remove and leave open to air or cover incisions with Band-Aids. Leave the sticky Steri-Strips in place until they fall off or remove them after you shower. May shower after 5 days. Follow-up: 10-[address] Lenz You may take off the leg compression stockings this evening at home. You may also leave them on a few days longer if you have a history of leg swelling or edema. Let us know right away if you develop any redness, drainage, fevers, chest pain, or trouble breathing. Do not drink alcohol or drive for at least 24 hours after anesthesia. Please call the office during business hours with any questions or concerns. Discharge Orders Discharge Orders: Discharge Order (Routine); Ordered 09/26/24 Ordered By: Katarzyna Woody DS: Diagnosis Discharge Diagnosis (1) Acute medial meniscus tear of left knee: Status: Acute
== END 2024-09-26 12:46 | disposition home or self-care (01) ==
LOC: SUR 12:46
PROVIDERS: PCP Nurse Practitioner; Visit Provider Student in an Organized Health Care Education/Training Program
DX: Z53.9 Procedure and treatment not carried out, unspecified reason (principal)

== ENCOUNTER 2024-10-03 09:55 | Day surgery (SDC) | payer OTHER, SELFPAY ==
[2024-10-03] VITALS (21 sets, daily range): BP systolic 96–140; BP diastolic 61–95; PULSE 60–104; RESP 11–24; TEMP 36.2–37; O2SAT 94–99; BMI 32.5
--- NOTE | 2024-10-03 07:14 | W.PM.DSUDISC ---
Date of service: 10/03/24 Discharge Plan Disposition Patient Disposition: Home Condition: Stable Discharge Details Attending Provider: Vj Lenz Primary Care Provider: Josette Canseco Home Meds and New Rx's Prescriptions: New naproxen 250 mg tablet 250 - 500 mg PO BID PRN (Reason: Moderate pain) Qty: 40 0RF aspirin 81 mg tablet,delayed release (DR/EC) 81 mg PO DAILY 14 Days Qty: 14 0RF oxycodone 5 mg tablet 5 - 10 mg PO Q4H PRN (Reason: Moderate to severe pain) Qty: 18 0RF Continued multivitamin Tablet 1 tab PO DAILY acetaminophen 325 mg tablet 325 mg PO ONCE PRN fluoxetine 20 mg capsule 40 mg PO DAILY nicotine (polacrilex) 2 mg mini lozenge 2 mg buccal Q4H PRN baclofen 5 mg tablet 5 mg PO TID PRN Patient Comments: TAKE 2 TABLETS BY MOUTH THREE TIMES DAILY NEEDED FOR MUSCLE SPASM pantoprazole [Protonix] 40 mg tablet,delayed release (DR/EC) 40 mg PO DAILY Discharge Instructions Additional Instructions: Surgery: Left knee arthroscopy partial medial & small lateral meniscectomy and patellar chondroplasty on 10/03/2024 Activity: Weightbearing as tolerated. Advance range of motion as comfort allows. No knee brace or crutches needed as soon as comfortable. Recommend avoiding sports, pivoting, and squatting for 6-8 weeks. A physical therapy prescription will be provided if needed at follow up. Prescriptions: Aspirin 81 mg take 1 daily to prevent a blood clot for 14 days Naproxen 250 mg take 1-2 every 12 hours with a meal as needed for moderate pain Oxycodone 5 mg take 1-2 every 4-6 hours as needed for severe pain You may use rdjd-avx-svkknva Tylenol (acetaminophen) as needed for mild pain. These pain medications may be taken all at once or in different combinations as needed. Also, recommend Colace (docusate) as a stool softener as surgery and pain medicine cause constipation. You may try txjd-jdg-dltfddu diphenhydramine (Benadryl) 25-50 mg nightly as a sleep aid Dressings: Leave dressing in place for 3 days. May then remove and leave open to air or cover incisions with Band-Aids. Leave the sticky Steri-Strips in place until they fall off or remove them after you shower. May shower after 5 days. Follow-up: 10-14 days with an orthopedic physician and 6 to [address] Lenz if needed You may take off the leg compression stockings this evening at home. You may also leave them on a few days longer if you have a history of leg swelling or edema. Let us know right away if you develop any redness, drainage, fevers, chest pain, or trouble breathing. Do not drink alcohol or drive for at least 24 hours after anesthesia. Please call the office during business hours with any questions or concerns. Discharge Orders Discharge Orders: Discharge Order (Routine); Ordered 10/03/24 Ordered By: Bruce Amaro DS: Diagnosis Discharge Diagnosis (1) Acute medial meniscus tear of left knee: Status: Acute (2) Chondromalacia of patella, left: Status: Acute
--- NOTE | 2024-10-03 07:21 | ROE_ITS ---
Operative Note Operative Note PRE-OP DIAGNOSIS: Left knee 1. Medial meniscus tear POST-OP DIAGNOSIS: same Left knee 1. Medial meniscus tear 2. Patellar chondromalacia 3. small Lateral meniscus tear PROCEDURE: Left knee 1. Partial medial & lateral meniscectomy, CPT #19019 2. 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 Findings: Exam under anesthesia: Anterior knee abrasion, superficial, no infection. Otherwise good range of motion and stable. Arthroscopic findings: Moderate undersurface patellar chondromalacia with some medial and lateral plical band synovial thickening and patellofemoral moderate synovitis. Moderate large complex posterior horn medial meniscus tear with parrot-beak and radial to horizontal components. Small white zone posterior and lateral meniscus tear. Mild diffuse chondromalacia. Intact ACL. Procedure Description: In the operating room, general anesthesia was induced. The patient was positioned supine on the operating room table. All bony prominences were well- padded. Preoperative antibiotics were administered. The knee was prepped and draped in the usual sterile fashion. The correct patient, procedure, and side of the procedure were all verified prior to incision. Exam under anesthesia was performed. 10 cc of 0.25% bupivacaine containing epinephrine was infiltrated about the planned anteromedial and anterolateral kn arthroscopy portals. The portals were established and a complete diagnostic arthroscopy was performed with relevant findings detailed above. Mechanical shaver was used to remove inflamed synovium engaging in the patellofemoral compartment, followed by the radiofrequency ablator to resect some medial and lateral gutter and suprapatellar synovial thickening type plical bands. The torpedo shaver was then used to smooth the underside patella irregular cartilage about some fissuring and fibrillation slightly. In the medial compartment, a combination of hand instruments including meniscal biters and a power shaver and working through the anteromedial and anterolateral portals the meniscus was debrided of all torn tissue to a stable margin. Care was taken to preserve as much meniscus tissue was possible. The meniscal remnant was probed and found to have a stable margin, stable root, and no other tears. In the cbkevd-ap-ryje position, a small lateral meniscus posterior horn tear was readily debrided with the torpedo shaver. Under direct arthroscopic visualization an 18-gauge needle was passed into the knee from superolateral into the suprapatellar pouch. The knee was copiously irrigated with arthroscopic fluid until there was a clear effluent before being drained of all fluid. The anteromedial and anterolateral portals were closed in 3-0 Monocryl in a buried interrupted fashion. 20 cc of 0.25% bupivacaine with epinephrine containing 4 mg of morphine was infiltrated into the knee through the previously placed needle. Mastisol, Steri-Strips, and 4 x 4 gauze were applied over the incisions. The knee was then wrapped gently with an GILBERTO comressive bandage. The patient awoke from anesthesia without complication and was transferred to the recovery room in a stable condition. Date of Procedure: 10/03/24
[2024-10-03] MEDS: Lactated Ringers 1,000 ML 30 ML IV (11:25)
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
[2024-10-03] MEDS: ceFAZolin 3,000 MG in Normal Saline 100 ML 200 MG IV (12:44)
[2024-10-03] MEDS: TRANEXAMIC ACID/SOD. CHL. 1,000 MG/100 ML BAG 600 MG IVPB (12:50)
[2024-10-03] MEDS: Bupivacaine 0.25% Pres-Free W/EPI 30 ML VIAL (13:12)
[2024-10-03] MEDS: Albuterol/Ipratropium 3 ML UPD VIAL UPD (13:42)
[2024-10-03] MEDS: EPINEPHrine 10 MG/10 ML ML (13:51)
[2024-10-03] MEDS: HYDROmorphone 2 MG/ML SYR IVP (14:07)
--- NOTE | 2024-10-03 14:22 | W.ANESPOSTOP ---
Postoperative Evaluation Date, Time and Location Date Performed: 10/03/24 Time Performed: 14:22 Patient Location: PACU Vital Signs Most Recent Imported Vital Signs: Most Recent Vital Signs Temp Pulse Resp BP Pulse Ox 37.0 C 60 18 101/66 96 10/03/24 14:16 10/03/24 14:16 10/03/24 14:16 10/03/24 14:16 10/03/24 14:16 Pain Score Most Recent Pain Score: Most Recent Pain Score Pain Level 1 10/03/24 14:18 Assessment Mental Status: Awake (Alert & Oriented to Patient Baseline) Airway and Respiratory Function: Patent airway with normal (patient baseline) respiratory exam Cardiovascular Function: Hemodynamically Stable Hydration Status: Adequately Hydrated Nausea & Vomiting: No Nausea or Vomiting Pain: Pain is tolerable per patient Peripheral Nerve Block: Patient did not receive a nerve block
== END 2024-10-03 15:45 | disposition home or self-care (01) ==
LOC: SUR 09:56
PROVIDERS: PCP Nurse Practitioner; Visit Provider Student in an Organized Health Care Education/Training Program
PROC: (CPT 29870; principal; 2024-10-03 11:45)
DX: S83.242A Other tear of medial meniscus, current injury, left knee, initial encounter (principal); S83.282A Other tear of lateral meniscus, current injury, left knee, initial encounter; M22.42 Chondromalacia patellae, left knee; K21.9 Gastro-esophageal reflux disease without esophagitis; W19.XXXA Unspecified fall, initial encounter
CPT/HCPCS: 29880; J0131; J0690; J1100; J1171; J1805; J1885; J2003; J2405; J2704; J3010; J3475; J7620

== ENCOUNTER 2024-11-29 10:01 | Day surgery (SDC) | payer OTHER, SELFPAY ==
--- NOTE | 2024-11-27 13:43 | NUR.NOTE ---
Pt. had pre op call, and pt. requested that his GF be present upon waking up as patient stated he has a hx of TBI, and PTSD, and often times wakes up extremely combative, ripping out IV's, but does way better when she is there upon waking from anesthesia. Pt was informed that that is not a problem, and we can absolutely honor that request. However, patient did state his GF will have their three children with her (set of twins age 1 and toddler age 2). Pt was clearly informed that due to hospital policy children are not allowed in D[facility]. Pt. then proceeded to state last surgery he had his nurse whom he stated her name was Shirlene went out to waiting room to wait his kids while his GF came into DSU to be present with him. It was confirmed with Shirlene that this did not happen, but that she went out into waiting room and reviewed discharge instructions with the GF out of DSU. This case was reviewed, with Kirstie, Nelda Scherer, John Yoo and Luis, to determine an appropriate plan. This RN was informed by Nelda Yoo that we are not able to accommodate children in DSU and we could offer another time when patient could have proper childcare, but in fact children will not be allowed in DSU. Pt. was called back and informed of this. Pt. stated he believes his GF will be able to get somebody to sit with their children while GF can be present at bedside with patient. Pt.'s time was also changed from 0915 to 1045 per anesthesia request due to severe GERD, and case needing to be performed in OR not procedure room. Pt. stated understanding about the entirety of the plan for 11/29 case.Nursing Note:
--- NOTE | 2024-11-28 16:34 | W.PM.DSUDISC ---
Date of service: 11/29/24 Discharge Plan Disposition Patient Disposition: Home Condition: Good Discharge Details Reason For Visit: EGD Attending Provider: Karlos Piña Primary Care Provider: Josette Canseco Home Meds and New Rx's Prescriptions: Continued varenicline tartrate 0.5 mg (11)- 1 mg (42) tablets,dose pack See Rx Instructions PO PER PKG DIR Rx Instructions: PO PER PKG DIR multivitamin Tablet 1 tab PO DAILY acetaminophen 325 mg tablet 325 mg PO ONCE PRN fluoxetine 20 mg capsule 40 mg PO DAILY nicotine (polacrilex) 2 mg mini lozenge 2 mg buccal Q4H PRN baclofen 5 mg tablet 5 mg PO TID PRN Patient Comments: TAKE 2 TABLETS BY MOUTH THREE TIMES DAILY NEEDED FOR MUSCLE SPASM guanfacine 1 mg tablet 1 mg PO DAILY PRN Patient Comments: pt unsure of dose pantoprazole [Protonix] 40 mg tablet,delayed release (DR/EC) 40 mg PO DAILY Discharge Instructions Instructions: Esophagitis, Peptic ulcers Additional Instructions: Nikhil, it was good seeing you today, and I hope you feel well after the procedure. Things went very smoothly. You do have signs of Alice esophagitis, which is a fungal infection that occurs in the swallowing pipe of some patients. I did some biopsies of this to confirm the diagnosis, but my hunch is you will need treatment with an antifungal medication. This is going to be a little bit challenging, because it is relatively contraindicated with fluoxetine. For right now, we can wait to see what the biopsy results show, but my inclination is that we will need to hold your fluoxetine during 2 weeks of antifungal therapy. You also do have signs of peptic ulcer disease, in the form of small ulcers in your stomach. I did some biopsies of this to see if there is any signs of Helicobacter pylori present. The biopsies of your stomach will take a week or 2 to get back, but once I have that information I will be in touch. In the meantime, I would strongly encourage you to refrain from alcohol and tobacco use, as well as highly processed fast foods. I will attach some basic information here about esophagitis and peptic ulcer disease. I would encourage you to discuss this with your doctors at the [facility] as well. If you have any questions at all, please do not hesitate to ask, otherwise we will be in touch as soon as the biopsy results are available. 1. If tolerated, consume a soft, low fiber diet for 1-2 days. [address] Do not drive, drink alcohol, operate machinery, make critical decisions, or do activities that require coordination or balance for 24 hours. 3. You may experience a sore throat for 24 to 48 hours. You may use throat lozenges or gargle with warm salt water to relieve the discomfort. 4. Because air was put into your stomach during the procedure, you may experience some belching. 5. Go directly to the emergency room if you notice any of the following: Develop chills (warm to touch), or if you have a thermometer and your temperature is above 101 Difficulty breathing or difficultly swallowing Persistent vomiting Severe abdominal pain, other than gas cramps Severe chest pain Black, tarry stools Any bleeding ? exceeding one tablespoon 6. Call your physician if the site where your intravenous was started becomes red, swollen, painful, and warm to touch. 7. Your physician has reviewed your pre-procedure medications. Please continue to take those medications as previously ordered. You will be given specific information/education regarding any changes to your medications before leaving. Stand Alone Forms: Anesthesia Discharge Inst., Angelia Gauthier (DSU) Activity:: Activity as Tolerated Diet:: As Tolerated Discharge Orders Discharge Orders: Discharge Order (Routine); Ordered 11/28/24 Ordered By: Karlos Piña DS: Diagnosis Discharge Diagnosis (1) Dysphagia: Status: Acute Asessment and Plan: Follow-up on biopsy results
--- NOTE | 2024-11-28 16:35 | ENDO_ITS ---
Date of service: 11/29/24 Time of Service: 11:57 Endoscopy Report DATE OF PROCEDURE: 11/29/24 PRE-OP DIAGNOSIS: Dysphagia POST-OP DIAGNOSIS: other (Esophagitis, peptic ulcer disease) PROCEDURE: EGD with biopsies SURGEON: Karlos Piña ANESTHESIA TYPE: General:No Airway ESTIMATED BLOOD LOSS: 10 PATHOLOGY: other (Esophageal biopsies, GE junction biopsies, gastric ulcer #1 biopsies, gastric ulcer #2 biopsies) COMPLICATIONS: None DISPOSITION: same day INDICATIONS: Nikhil is a 44-year-old male with poorly controlled GERD and dysphagia despite PPI therapy FINDINGS: Likely Alice esophagitis, peptic ulcer disease with 2 discrete gastric ulcers PROCEDURE DESCRIPTION: After the initiation of general anesthesia by way of an endotracheal tube, I advanced a standard gastroscope through the mouth past the hypopharynx and into the esophagus.? Under the direct vision of the scope, I advanced down the esophagus towards the stomach.? There were white plaques running linearly along the esophagus consistent with Alice esophagitis. There is mild irregularity of the Z-line, with the GE junction occurring 38 cm from the incisors. I can traverse the GE junction with ease. The stomach was insufflated into the rugae were obliterated. I performed retroflexion. I do not see any signs of any hiatal herniation. Along the lesser curvature, there are 2 discrete gastric ulcers. Neither one of them are actively bleeding. I do not appreciate any visible vessels at the base, which is quite small. The ulcers are flat. I pe rformed some biopsies around the periphery of both ulcers, listed as gastric ulcer #1 gastric ulcer #2. There was minimal bleeding from the biopsy sites. I can advance down around the incisura angularis and across the pylorus with ease. There is peptic duodenitis. Biopsies were performed of this as well. I then brought the camera back into the stomach, and up to the GE junction. Narrowband imaging was used to assist with the analysis here. Aside from some very mild irregularity of the Z-line, there were not really discrete factors of [place]'s esophagus. However, to be safe given the extent of his symptoms, I did perform some biopsies of the GE junction to rule this out. Finally, I performed some biopsies along the length of the esophagus to confirm the presence of esophageal candidiasis. I then advanced the camera back down into the stomach and emptied it completely. The camera was then withdrawn as the patient was extubated, and transferred to the recovery unit. Once I entered the stomach, I performed a brief inspection, followed by retroflexion towards the gastric cardia.? This appeared normal.? After that, I gently advanced the scope around the incisura angularis and examined the pylorus.? This also appeared normal.? Next, I advanced the scope through the pylorus into the duodenum.? The mucosa was pink and healthy appearing.? There were no abnormalities.? I was able to visualize bile draining into the duodenum through the ampulla Vater. ?Next, I began retracting the endoscope.? Again, I returned to the stomach which was carefully examined once again.? I then gently desufflated some of the stomach, and withdrew the endoscope into the distal esophagus. []. ?Finally, I withdrew the scope along the length of the esophagus taking great care to examine the entirety of the mucosa.? I did not appreciate any abnormalities.
[2024-11-29] VITALS (14 sets, daily range): BP systolic 108–154; BP diastolic 90–116; PULSE 62–119; RESP 15–21; TEMP 36.4–36.5; O2SAT 89–100; BMI 32.7
[2024-11-29] MEDS: Lactated Ringers 1,000 ML 80 ML IV (10:37)
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
--- NOTE | 2024-11-29 11:37 | BOWEL_PTH ---
PATIENT: Nikhil Cleaning LOC: [facility] U#:[id number] AGE/SX: 44/M ROOM: RE11/29/[address]: Karlos Piña MD : 1980 BED: DIS: 11/29/2024 SPEC #: [id number] RECD: 11/29/24 12:41 STATUS: [facility] #: [id number] CARLOS EDUARDO: 11/29/24 11:[address]: Karlos Piña DEPT: Surgical Specimen RECD BY: Jodee Santos Tissues: 1 - STOMACH BIOPSY 2 - STOMACH BIOPSY 3 - BIOPSY BOWEL 4 - ESOPHAGUS BIOPSY 5 - ESOPHAGUS BIOPSY Procedures: GROSS AND MICRO LEVEL 4 IMMUNOPEROXIDASE STAIN Comments: [id number]
--- NOTE | 2024-11-29 13:03 | W.ANESPOSTOP ---
Postoperative Evaluation Date, Time and Location Date Performed: 11/29/24 Time Performed: 13:03 Patient Location: Day Surgery Unit Vital Signs Most Recent Imported Vital Signs: Most Recent Vital Signs Temp Pulse Resp BP Pulse Ox 36.5 C 86 20 108/90 99 11/29/24 12:27 11/29/24 12:27 11/29/24 12:27 11/29/24 12:27 11/29/24 12:27 Pain Score Most Recent Pain Score: Most Recent Pain Score Pain Level 0 11/29/24 12:27 Assessment Mental Status: Awake (Alert & Oriented to Patient Baseline) Airway and Respiratory Function: Patent airway with normal (patient baseline) respiratory exam Cardiovascular Function: Hemodynamically Stable Hydration Status: Adequately Hydrated Nausea & Vomiting: No Nausea or Vomiting Pain: Pt. Denies Any Pain Peripheral Nerve Block: Patient did not receive a nerve block
== END 2024-11-29 13:11 | disposition home or self-care (01) ==
LOC: SUR 10:02
PROVIDERS: PCP Nurse Practitioner; Visit Provider Surgery
PROC: 0DJ68ZZ Inspection of Stomach, Via Natural or Artificial Opening Endoscopic (ICD-10-PCS; CPT 43235; principal; 2024-11-29 12:15)
DX: R13.10 Dysphagia, unspecified (principal); K20.90 Esophagitis, unspecified without bleeding; K25.9 Gastric ulcer, unspecified as acute or chronic, without hemorrhage or perforation; K31.9 Disease of stomach and duodenum, unspecified; K29.80 Duodenitis without bleeding
CPT/HCPCS: 43239; 36415; 88305; 82941; 88361; J1805; J2003; J2704